=== PATIENT | female | born 1950 ===

== ENCOUNTER 2022-05-11 18:59 | Emergency (ER) | payer OTHER ==
[~2022-05-11] VITALS: Ht 154.9 cm; Wt 81.8 kg
[2022-05-11] MEDS ORDERED: OMEP20 PO (19:12)
[2022-05-11] MEDS ORDERED: LOSA-382 PO (19:12)
[2022-05-11] MEDS ORDERED: KETOROLAC TROMETHAMINE 30 MG/ML VIAL IM ONE (19:30)
[2022-05-11] MEDS ORDERED: ACETAMINOPHEN 500 MG TABLET PO ONE (19:30)
[2022-05-11 20:14] VITALS: BP 162/63
[2022-05-11] MEDS ORDERED: LIDO700A15 TP (20:38)
[2022-05-11] MEDS ORDERED: IBUP-2070 PO (20:38)
[2022-05-11] MEDS ORDERED: LIDOCAINE 5% TRANSDERMAL PATCH TD ONE (20:45)
== END 2022-05-11 20:56 | disposition home or self-care (01) ==
LOC: EMS 19:08
DX: R51.9 Headache, unspecified (principal); I10 Essential (primary) hypertension; K21.9 Gastro-esophageal reflux disease without esophagitis; Z90.710 Acquired absence of both cervix and uterus
CPT/HCPCS: 99283; 96372; J1885